=== PATIENT | female | born 1985 | race Caucasian/White ===

== ENCOUNTER 2024-04-09 13:12 | Emergency (ER) | payer OTHER ==
[~2024-04-09 13:12] MED LIST: CEPH-558 PO; SULF-168 PO; TRAM50TA5 PO
== END 2024-04-09 13:16 | disposition left against medical advice (07) ==
LOC: EMS 13:12
DX: Z53.21 Procedure and treatment not carried out due to patient leaving prior to being seen by health care provider (principal)

== ENCOUNTER 2025-02-16 17:02 | Emergency (ER) | payer OTHER ==
[~2025-02-16] VITALS: Ht 154.9 cm; Wt 90.9 kg
[2025-02-16 17:09] VITALS: BP 133/84; PULSE 108; RESP 16; TEMP 98; O2SAT 100
== END 2025-02-16 19:09 | disposition left against medical advice (07) ==
LOC: EMS 17:03
DX: Z53.21 Procedure and treatment not carried out due to patient leaving prior to being seen by health care provider (principal)